=== PATIENT | male | born 1990 | race Caucasian/White ===

== ENCOUNTER 2021-06-23 16:09 | Outpatient (REF) | payer OTHER, SELFPAY ==
[2021-06-23 16:24] LABS: Appearance Urine CLEAR; Color Urine YELLOW; Glucose Urine UA NEG (NEG); Leukocyte Esterase Urine 2+ (NEG); Nitrite Urine POS (NEG); UACC Culture Trigger YES; Urine Blood NEG (NEG); Urine Ketones NEG (NEG); Urine Protein NEG (NEG-TRACE)
[2021-06-23 16:37] LABS: Bacteria Urine 3+ /LPF; RBC Urine 0 /HPF (0); Squamous Epithelial Cell Urine 1+ /LPF; WBC Urine 30-49 /HPF (0-4)
== END 2021-06-23 16:10 | disposition home or self-care (01) ==
LOC: HO.LNP 16:09
PROVIDERS: Visit Provider Internal Medicine
DX: R82.90 Unspecified abnormal findings in urine (principal)
CPT/HCPCS: 81001; 87086

== ENCOUNTER 2021-10-24 06:45 | Outpatient (REF) | payer OTHER, SELFPAY ==
[2021-10-24 06:53] LABS: MANUAL DIFF FLAG NO
[2021-10-24 07:15] LABS: Basophils Percent Auto 0.5 % (0-2); Eosinophils Absolute Auto 0.3 X10*3/uL (0.0-0.4); Eosinophils Percent Auto 4.1 % (0-4); Hematocrit 42.5 % (42.0-52.0); Hemoglobin 13.7 g/dl (14.0-18.0); Imm Gran Abs Auto 0.03 X10*3/uL (0.00-0.03); Imm Gran Pct Auto 0.4 % (0.0-0.4); Lymphocytes Absolute Auto 2.3 X10*3/uL (1.2-4.9); Mean Corpuscular HGB Conc 32.2 g/dl (31.0-36.0); Mean Corpuscular Hemoglobin 26.9 pg (27.0-33.0); Mean Corpuscular Volume 83.3 fL (80.0-98.0); Mean Platelet Volume 9.9 fL (9.4-12.4); Monocytes Absolute Auto 0.5 X10*3/uL (0.1-1.2); Monocytes Percent Auto 7.1 % (2-11); Neutrophils Absolute Auto 4.1 x10*3/uL (2.0-8.3); Neutrophils Percent Auto 55.9 % (45-73); Platelet Count 315 X10*3/uL (160-400); Red Cell Distribution Width 13.5 % (11.0-16.0); White Blood Count 7.3 X10*3/uL (4.8-10.8)
[2021-10-24 07:31] LABS: Appearance Urine Clear; Color Urine Yellow; Glucose Urine UA Negative (Negative); Leukocyte Esterase Urine Large (3+) (Negative); Nitrite Urine Positive (Negative); Specific Gravity - Urine 1.015 (1.005-1.025); Urine Blood Negative (Negative); Urine Ketones Negative (Negative); Urine Protein Negative (Neg-Trace)
[2021-10-24 07:43] LABS: Alanine Aminotransferase 17 U/L (0-40); Albumin Level 4.3 g/dL (3.5-5.0); Alkaline Phosphatase 44 U/L (39-117); Anion Gap 14 (12-20); Aspartate Amino Transferase 15 U/L (5-37); Bacteria Urine 4+ (None Seen); Bilirubin Total 0.3 mg/dL (0.0-1.0); Blood Urea Nitrogen 15 mg/dL (9-16); Carbon Dioxide 23 mmol/L (22-29); Chloride 109 mmol/L (96-108); Cholesterol 150 mg/dL; Estimated Glomerular Filt Rate > 60; Glucose Fasting 97 mg/dL (60-99); HDL Cholesterol 43 mg/dL; Hyaline Casts Urine 0-2 /LPF (0-2); LDL Cholesterol Calculated 90 mg/dl; RBC Urine 0-2 /HPF (0-2); Sodium 142 mmol/L (135-145); Triglycerides 87 mg/dL; UACC Culture Trigger YES; WBC Clumps Urine Present; WBC Urine >50 /HPF (0-5)
[2021-10-24 08:05] LABS: TSH reflex Free T4 1.01 uIU/mL (0.32-4.0); Vitamin D 25-OH Total 14.9 ng/mL (>30)
== END 2021-10-24 06:46 | disposition home or self-care (01) ==
LOC: HO.LAB 06:45
PROVIDERS: PCP Internal Medicine; Visit Provider Internal Medicine
DX: Z00.00 Encounter for general adult medical examination without abnormal findings (principal); G82.50 Quadriplegia, unspecified; N31.9 Neuromuscular dysfunction of bladder, unspecified; E55.9 Vitamin D deficiency, unspecified; E78.00 Pure hypercholesterolemia, unspecified
CPT/HCPCS: 36415; 80053; 80061; 81001; 82306; 84443; 85025; 87086

== ENCOUNTER → 2022-01-30 08:55 | Outpatient (BNVA) | payer OTHER, SELFPAY | PROVIDERS: PCP Internal Medicine; Referring Provider Internal Medicine; Visit Provider Surgery | DX: L53.9 Erythematous condition, unspecified (principal); G82.50 Quadriplegia, unspecified; N31.9 Neuromuscular dysfunction of bladder, unspecified; S14.109S Unspecified injury at unspecified level of cervical spinal cord, sequela; S14.107S Unspecified injury at C7 level of cervical spinal cord, sequela; Z99.3 Dependence on wheelchair | CPT/HCPCS: 99202 ==

== ENCOUNTER → 2022-05-27 13:49 | Outpatient (BNVA) | payer OTHER, SELFPAY | PROVIDERS: PCP Internal Medicine; Visit Provider Nurse Practitioner Family | DX: N31.9 Neuromuscular dysfunction of bladder, unspecified (principal); R39.9 Unspecified symptoms and signs involving the genitourinary system | CPT/HCPCS: 99202 ==

== ENCOUNTER 2022-05-28 10:11 | Outpatient (REF) | payer OTHER, SELFPAY | END 2022-05-28 10:12 | disposition home or self-care (01) | LOC: HO.LNP 10:11 | PROVIDERS: Visit Provider Nurse Practitioner Family | DX: R39.9 Unspecified symptoms and signs involving the genitourinary system (principal) | CPT/HCPCS: 87086 ==

== ENCOUNTER → 2022-06-03 14:11 | Outpatient (BNVA) | payer OTHER, SELFPAY | PROVIDERS: PCP Internal Medicine; Visit Provider Orthopaedic Surgery | DX: G82.50 Quadriplegia, unspecified (principal); S14.109D Unspecified injury at unspecified level of cervical spinal cord, subsequent encounter; Z99.3 Dependence on wheelchair | CPT/HCPCS: 99202 ==

== ENCOUNTER 2022-06-16 13:00 | Outpatient (RCR) | payer OTHER, SELFPAY ==
--- NOTE | 2022-05-28 10:53 | MHC.OT.EP ---
[address] [phone] Occupational Therapy Plan of Care Patient Name: Lester Joe Date of Evaluation: 05/28/22 Diagnosis: Quadriplegia ,bilateral hand contractures Pain Location: Back pain and bilateral shoulders , ache Pain Score: Pain Scale Used: Aggravating Factors: Unable to report Alleviating Factors: Assessment: Pt is a 32 yo male with a diagnosis of bilateral hand contractures and weakness due to a C7 spinal cord injury 14 years ago. He reports worsening of hand posturing due to not replacing his hand splints several years ago. He also reports worsening hand weakness. Passive wrist and hand ROM are WFL. Pt will benefit from new resting hand splints and possibly can wear anti claw splints for increased active digit extension as well as therapeutic ex for UE strengthening Frequency and Duration: The patient will be seen 2x wk x 3 wks Short Term Goals: Pt will tolerate resting hand orthoses for up to 8 hours without pressure areas Pt will tolerate an anti claw orthosis up to 30 min without pressure areas Pt will be indep donning and doffing orthoses Pt will demo indep with wrist and hand PROM and strengthening ex Detention Goals: Same as above Treatment Plan: Therapeutic Exercise Home Exercise Program Splinting Patient Education Electronically Signed By: Yeni Vidal OT CHT CLT Please Sign and return to therapist. Thank you once again for your referral.
--- NOTE | 2022-07-28 15:44 | MHC.OT.DC ---
[address] [phone] F: [phone] Occupational Therapy Discharge Note Patient Name: Lester Joe Provider: Vijay Lunsford Diagnosis: Quadriplegia ,bilateral hand contractures Date of Surgery: Date of Evaluation: 05/28/22 Date of Discharge: 07/28/22 Treatments to Date: 3 Cancellations to Date: 1 No Shows to Date: 4 Discharge Status: Independent with HEP Recommend MD Follow-up Discharge Summary: Pt reports feeling improvement in right hand ROM since wearing his custom right resting hand orthosis. He is able to perform UB strengthening with green Loop Theraband. May benefit from a dynamic LMB ulnar nerve splint. I requested an MD rx from Dr. Lunsford for bilateral ulnar nerve splints for limiting bilateral claw posturing on 06/16/22 Electronically Signed By: Yeni Vidal OT CHT CLT Reviewed/agree with student documentation: Therapist: Please Sign and return to therapist, thank you for your referral.
== END 2022-07-28 15:46 | disposition home or self-care (01) ==
LOC: HO.OT 13:00
PROVIDERS: PCP Internal Medicine; Visit Provider Internal Medicine
DX: G82.50 Quadriplegia, unspecified (principal)
CPT/HCPCS: 29125; 97110; 97166; 97760

== ENCOUNTER 2022-08-27 14:38 | Outpatient (AMB) | payer OTHER, SELFPAY ==
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
== END 2022-08-27 15:07 | disposition home or self-care (01) ==
PROVIDERS: Visit Provider Nurse Practitioner Family
DX: N31.9 Neuromuscular dysfunction of bladder, unspecified (principal)
CPT/HCPCS: 99213

== ENCOUNTER → 2022-08-27 14:38 | Outpatient (BNVA) | payer OTHER, SELFPAY | PROVIDERS: Visit Provider Nurse Practitioner Family | DX: N31.9 Neuromuscular dysfunction of bladder, unspecified (principal) | CPT/HCPCS: 99212 ==

== ENCOUNTER 2022-10-27 16:06 | Outpatient (AMB) | payer OTHER, SELFPAY ==
[2022-10-27 16:09] VITALS: BP 110/70
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
== END 2022-10-27 16:52 | disposition home or self-care (01) ==
PROVIDERS: PCP Internal Medicine; Visit Provider Internal Medicine
DX: Z00.00 Encounter for general adult medical examination without abnormal findings (principal); S14.107S Unspecified injury at C7 level of cervical spinal cord, sequela; G82.50 Quadriplegia, unspecified; S14.109S Unspecified injury at unspecified level of cervical spinal cord, sequela; N31.9 Neuromuscular dysfunction of bladder, unspecified
CPT/HCPCS: 99395

== ENCOUNTER 2023-04-14 11:40 | Outpatient (AMB) | payer OTHER, SELFPAY ==
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
== END 2023-04-14 12:32 | disposition home or self-care (01) ==
PROVIDERS: PCP Internal Medicine; Visit Provider Nurse Practitioner Family
DX: N31.9 Neuromuscular dysfunction of bladder, unspecified (principal); S14.107S Unspecified injury at C7 level of cervical spinal cord, sequela; N39.0 Urinary tract infection, site not specified; N52.9 Male erectile dysfunction, unspecified
CPT/HCPCS: 99214

== ENCOUNTER 2023-04-14 11:40 | Outpatient (REF) | payer OTHER, SELFPAY | END 2023-04-14 11:41 | disposition home or self-care (01) | LOC: HO.LNP 11:40 | PROVIDERS: PCP Internal Medicine; Visit Provider Nurse Practitioner Family | DX: R39.9 Unspecified symptoms and signs involving the genitourinary system (principal); N31.9 Neuromuscular dysfunction of bladder, unspecified; N52.9 Male erectile dysfunction, unspecified | CPT/HCPCS: 81003; 87086; 99212 ==

== ENCOUNTER 2023-06-30 12:25 | Outpatient (REF) | payer OTHER, SELFPAY ==
--- NOTE | ~2023-06-30 | US_ITS ---
EXAMINATION: US RETROPERITONEAL COMPLETE (RENAL) CLINICAL INFORMATION: Neuromuscular dysfunction of bladder, unspecified. COMPARISON: None available. TECHNIQUE: Real-time imaging of the kidneys and bladder. FINDINGS: RIGHT KIDNEY: 9.1 x 4.9 x 4.7 cm (SAG x AP x TRV). The kidney is normal in size, contour, and echogenicity. Renal cortical thickness is normal. No hydronephrosis. 1.7 cm simple parapelvic cyst in mid pole. No follow-up imaging is recommended. Nonobstructing 6 mm lower pole calculus and 4 mm upper pole calculus. LEFT KIDNEY: 9.3 x 5.6 x 5.1 cm (SAG x AP x TRV). The kidney is normal in size, contour, and echogenicity. Renal cortical thickness is normal. No calculi or focal parenchymal lesions. No hydronephrosis. BLADDER: Well distended and normal. Bilateral ureteral jets are demonstrated. Prevoid bladder volume is 236 mL. Postvoid bladder volume is 138 mL. The prostate volume is 25.9 mL. US/US retroperitoneal comp IMPRESSION: Mildly enlarged prostate. Post void bladder residual 138 mL. No hydronephrosis. Nonobstructing right renal calculi.
== END 2023-06-30 12:26 | disposition home or self-care (01) ==
LOC: HO.US 12:25
PROVIDERS: PCP Internal Medicine; Visit Provider Nurse Practitioner Family
DX: N31.9 Neuromuscular dysfunction of bladder, unspecified (principal)
CPT/HCPCS: 76770

== ENCOUNTER 2023-07-13 14:23 | Outpatient (REF) | payer OTHER, SELFPAY | END 2023-07-13 14:24 | disposition home or self-care (01) | LOC: HO.LNP 14:23 | PROVIDERS: PCP Internal Medicine; Visit Provider Nurse Practitioner Family | DX: N31.9 Neuromuscular dysfunction of bladder, unspecified (principal); N52.9 Male erectile dysfunction, unspecified; N20.0 Calculus of kidney; R39.89 Other symptoms and signs involving the genitourinary system | CPT/HCPCS: 81003; 87086; 87088; 87186; 99212 ==

== ENCOUNTER 2023-07-13 14:23 | Outpatient (AMB) | payer OTHER, SELFPAY ==
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
== END 2023-07-13 15:34 | disposition home or self-care (01) ==
PROVIDERS: PCP Internal Medicine; Visit Provider Nurse Practitioner Family
DX: N31.9 Neuromuscular dysfunction of bladder, unspecified (principal); N52.9 Male erectile dysfunction, unspecified; R39.9 Unspecified symptoms and signs involving the genitourinary system; N20.0 Calculus of kidney; Z13.9 Encounter for screening, unspecified
CPT/HCPCS: 99214; G2211

== ENCOUNTER 2023-10-13 14:21 | Outpatient (AMB) | payer OTHER, SELFPAY ==
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
== END 2023-10-13 15:13 | disposition home or self-care (01) ==
PROVIDERS: PCP Internal Medicine; Visit Provider Nurse Practitioner Family
DX: N52.9 Male erectile dysfunction, unspecified (principal); R39.9 Unspecified symptoms and signs involving the genitourinary system; N31.9 Neuromuscular dysfunction of bladder, unspecified; N20.0 Calculus of kidney; Z13.9 Encounter for screening, unspecified
CPT/HCPCS: 99213; G2211

== ENCOUNTER 2023-10-13 14:21 | Outpatient (REF) | payer OTHER, SELFPAY | END 2023-10-13 14:22 | disposition home or self-care (01) | LOC: HO.LNP 14:21 | PROVIDERS: PCP Internal Medicine; Visit Provider Nurse Practitioner Family | DX: R39.9 Unspecified symptoms and signs involving the genitourinary system (principal); Z13.9 Encounter for screening, unspecified | CPT/HCPCS: 81003; 87086; 87088; 87186; 99212 ==

== ENCOUNTER 2023-10-25 13:23 | Outpatient (AMB) | payer OTHER, SELFPAY ==
[2023-10-25 13:31] VITALS: BP 100/52; PULSE 89; O2SAT 98
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
== END 2023-10-25 14:23 | disposition home or self-care (01) ==
PROVIDERS: PCP Internal Medicine; Visit Provider Internal Medicine
DX: Z00.00 Encounter for general adult medical examination without abnormal findings (principal); S14.107S Unspecified injury at C7 level of cervical spinal cord, sequela; G82.50 Quadriplegia, unspecified; S14.109S Unspecified injury at unspecified level of cervical spinal cord, sequela; N31.9 Neuromuscular dysfunction of bladder, unspecified; N52.9 Male erectile dysfunction, unspecified; G47.00 Insomnia, unspecified
CPT/HCPCS: 99395

== ENCOUNTER 2023-12-08 08:43 | Outpatient (REF) | payer OTHER, SELFPAY ==
[2023-12-08 08:58] LABS: MANUAL DIFF FLAG NO
[2023-12-08 09:42] LABS: Basophils Percent Auto 0.7 % (0-2); Eosinophils Absolute Auto 0.3 X10*3/uL (0.0-0.4); Eosinophils Percent Auto 4.5 % (0-4); Hematocrit 39.2 % (42.0-52.0); Hemoglobin 12.9 g/dl (14.0-18.0); Imm Gran Abs Auto 0.02 X10*3/uL (0.00-0.03); Imm Gran Pct Auto 0.3 % (0.0-0.4); Lymphocytes Absolute Auto 1.9 X10*3/uL (1.2-4.9); Lymphocytes Percent Auto 32.8 % (20-40); Mean Corpuscular HGB Conc 32.9 g/dl (31.0-36.0); Mean Corpuscular Hemoglobin 26.9 pg (27.0-33.0); Mean Corpuscular Volume 81.7 fL (80.0-98.0); Mean Platelet Volume 9.9 fL (9.4-12.4); Monocytes Absolute Auto 0.3 X10*3/uL (0.1-1.2); Monocytes Percent Auto 5.9 % (2-11); Neutrophils Absolute Auto 3.2 x10*3/uL (2.0-8.3); Neutrophils Percent Auto 55.8 % (45-73); Platelet Count 297 X10*3/uL (160-400); Red Cell Distribution Width 13.8 % (11.0-16.0); White Blood Count 5.8 X10*3/uL (4.8-10.8)
[2023-12-08 10:46] LABS: Alanine Aminotransferase 18 U/L (0-40); Albumin Level 4.2 g/dL (3.5-5.0); Alkaline Phosphatase 48 U/L (39-117); Anion Gap 11 (12-20); Aspartate Amino Transferase 21 U/L (5-37); Bilirubin Total 0.3 mg/dL (0.0-1.0); Blood Urea Nitrogen 14 mg/dL (9-16); Calcium 9.1 mg/dL (8.4-10.2); Carbon Dioxide 25 mmol/L (22-29); Chloride 109 mmol/L (96-108); Cholesterol 173 mg/dL (<200); Estimated Glomerular Filt Rate > 60; Glucose Fasting 101 mg/dL (60-99); HDL Cholesterol 51 mg/dL (>40); LDL Cholesterol Calculated 105 mg/dL (<100); Sodium 141 mmol/L (135-145); Total Protein 6.8 g/dL (6.5-8.0); Triglycerides 85 mg/dL (<150)
[2023-12-08 11:01] LABS: Vitamin D 25-OH Total 12.7 ng/mL (>30)
[2023-12-08 11:40] LABS: TSH reflex Free T4 0.61 uIU/mL (0.32-4.0)
[2023-12-13 16:43] LABS: Testosterone, Free 112.4 pg/mL (35.0-155.0); Testosterone, Total 775 ng/dL (250-1100)
== END 2023-12-08 08:44 | disposition home or self-care (01) ==
LOC: HO.LAB 08:43
PROVIDERS: Absent Provider Internal Medicine; PCP Internal Medicine; Visit Provider Nurse Practitioner Family
DX: Z00.00 Encounter for general adult medical examination without abnormal findings (principal); E78.00 Pure hypercholesterolemia, unspecified; E55.9 Vitamin D deficiency, unspecified; D64.9 Anemia, unspecified; N52.9 Male erectile dysfunction, unspecified
CPT/HCPCS: 36415; 80053; 80061; 82306; 84402; 84403; 84443; 85025

== ENCOUNTER 2023-12-20 10:30 | Outpatient (REF) | payer OTHER, SELFPAY ==
[2023-12-22 23:53] LABS: TS Negative Control Passed; TS Panel A 0; TS Panel B 0; TS Positive Control Passed; TSpotTB Negative (Negative)
== END 2023-12-20 10:31 | disposition home or self-care (01) ==
LOC: HO.LAB 10:30
PROVIDERS: PCP Internal Medicine; Visit Provider Internal Medicine
DX: Z11.1 Encounter for screening for respiratory tuberculosis (principal)
CPT/HCPCS: 36415; 86481

== ENCOUNTER 2024-01-03 09:51 | Outpatient (REF) | payer OTHER, SELFPAY ==
--- NOTE | ~2024-01-03 | US_ITS ---
EXAMINATION: US RETROPERITONEAL LIMITED (RENAL ONLY) CLINICAL INFORMATION: Calculus of kidney. COMPARISON: Ultrasound kidneys and bladder 06/30/2023. TECHNIQUE: Real-time imaging of the kidneys. FINDINGS: RIGHT KIDNEY: 9.9 x 4.5 x 4.4 cm (SAG x AP x TRV). The kidney is normal in size, contour, and echogenicity. Renal cortical thickness is normal. There is a single upper pole and 2 lower pole echogenic foci seen at least one of which has twinkle artifact consistent with nonobstructing calculi. No hydronephrosis. 2 benign Bosniak class I renal cysts are noted measuring 2.1 and 1.0 cm, which require no additional imaging or follow-up. No solid renal masses are seen. LEFT KIDNEY: 9.5 x 4.2 x 5.1 cm (SAG x AP x TRV). The kidney is normal in size, contour, and echogenicity. Renal cortical thickness is normal. No renal calculi or hydronephrosis. A benign lower to mid renal 0.8 cm Bosniak class I renal cyst is noted which requires no additional imaging or follow up. No solid renal masses are seen. US/US renal BI IMPRESSION: Nonobstructing right-sided renal calculi. Electronically signed by: Toni Escudero MD 01/03/2024 03:35 PM EST
== END 2024-01-03 09:52 | disposition home or self-care (01) ==
LOC: HO.US 09:51
PROVIDERS: PCP Internal Medicine; Visit Provider Nurse Practitioner Family
DX: N20.0 Calculus of kidney (principal)
CPT/HCPCS: 76775

== ENCOUNTER 2024-06-14 10:24 | Outpatient (AMB) | payer OTHER, SELFPAY ==
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
== END 2024-06-14 11:20 | disposition home or self-care (01) ==
LOC: HO.HUSH 10:25
PROVIDERS: PCP Internal Medicine; Visit Provider Nurse Practitioner Family
DX: N31.9 Neuromuscular dysfunction of bladder, unspecified (principal); N20.0 Calculus of kidney; Z13.9 Encounter for screening, unspecified
CPT/HCPCS: 99214; G2211

== ENCOUNTER → 2024-06-14 10:24 | Outpatient (BNVA) | payer OTHER, SELFPAY | PROVIDERS: PCP Internal Medicine; Visit Provider Nurse Practitioner Family | DX: N31.9 Neuromuscular dysfunction of bladder, unspecified (principal); N20.0 Calculus of kidney; N39.0 Urinary tract infection, site not specified | CPT/HCPCS: 81003; 99212 ==

== ENCOUNTER 2024-09-07 10:27 | Outpatient (AMB) | payer OTHER, SELFPAY ==
[2024-09-07 11:02] VITALS: BP 116/68; PULSE 74; O2SAT 97
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
== END 2024-09-07 12:04 | disposition home or self-care (01) ==
LOC: HO.HMCH 10:27
PROVIDERS: PCP Internal Medicine; Visit Provider Internal Medicine
DX: S14.107S Unspecified injury at C7 level of cervical spinal cord, sequela (principal); G82.50 Quadriplegia, unspecified; S14.109S Unspecified injury at unspecified level of cervical spinal cord, sequela; N31.9 Neuromuscular dysfunction of bladder, unspecified; N52.9 Male erectile dysfunction, unspecified; E55.9 Vitamin D deficiency, unspecified; G47.00 Insomnia, unspecified

== ENCOUNTER → 2024-09-07 10:27 | Outpatient (BNVA) | payer OTHER, SELFPAY | PROVIDERS: PCP Internal Medicine; Visit Provider Internal Medicine | DX: G82.50 Quadriplegia, unspecified (principal); S14.107S Unspecified injury at C7 level of cervical spinal cord, sequela; N31.9 Neuromuscular dysfunction of bladder, unspecified; N52.9 Male erectile dysfunction, unspecified; E55.9 Vitamin D deficiency, unspecified; G47.00 Insomnia, unspecified; Z99.3 Dependence on wheelchair; Z13.31 Encounter for screening for depression; Z13.39 Encounter for screening examination for other mental health and behavioral disorders | CPT/HCPCS: 96127; 99212 ==

== ENCOUNTER 2024-12-14 08:19 | Outpatient (AMB) | payer OTHER, SELFPAY ==
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
== END 2024-12-14 09:05 | disposition home or self-care (01) ==
LOC: HO.HUSH 08:20
PROVIDERS: PCP Internal Medicine; Visit Provider Nurse Practitioner Family
DX: N31.9 Neuromuscular dysfunction of bladder, unspecified (principal); N20.0 Calculus of kidney
CPT/HCPCS: 99213

== ENCOUNTER → 2024-12-14 08:19 | Outpatient (BNVA) | payer OTHER, SELFPAY | PROVIDERS: PCP Internal Medicine; Visit Provider Nurse Practitioner Family | DX: N31.9 Neuromuscular dysfunction of bladder, unspecified (principal); N20.0 Calculus of kidney; Z93.6 Other artificial openings of urinary tract status; G82.50 Quadriplegia, unspecified; Z99.3 Dependence on wheelchair | CPT/HCPCS: 51798; 99212 ==

== ENCOUNTER 2024-12-19 10:17 | Outpatient (AMB) | payer OTHER, SELFPAY ==
[2024-12-19 10:18] VITALS: BP 80/62; PULSE 68; O2SAT 99
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
== END 2024-12-19 11:18 | disposition home or self-care (01) ==
LOC: HO.HMCH 10:17
PROVIDERS: PCP Internal Medicine; Visit Provider Internal Medicine
DX: Z00.00 Encounter for general adult medical examination without abnormal findings (principal); S14.107S Unspecified injury at C7 level of cervical spinal cord, sequela; G82.50 Quadriplegia, unspecified; S14.109S Unspecified injury at unspecified level of cervical spinal cord, sequela; N31.9 Neuromuscular dysfunction of bladder, unspecified; N20.0 Calculus of kidney; N52.9 Male erectile dysfunction, unspecified; E55.9 Vitamin D deficiency, unspecified; G47.00 Insomnia, unspecified

== ENCOUNTER → 2024-12-19 10:17 | Outpatient (BNVA) | payer OTHER, SELFPAY | PROVIDERS: PCP Internal Medicine; Visit Provider Internal Medicine | DX: Z00.00 Encounter for general adult medical examination without abnormal findings (principal); G82.50 Quadriplegia, unspecified; N31.9 Neuromuscular dysfunction of bladder, unspecified; N20.0 Calculus of kidney; N52.9 Male erectile dysfunction, unspecified; E55.9 Vitamin D deficiency, unspecified; G47.00 Insomnia, unspecified; S14.107S Unspecified injury at C7 level of cervical spinal cord, sequela; V89.2XXS Person injured in unspecified motor-vehicle accident, traffic, sequela | CPT/HCPCS: 96127; 99395 ==